=== PATIENT | female | born 1970 | race Caucasian/White ===

== ENCOUNTER 2018-02-11 14:38 | Emergency (ER) | payer BC ==
[2018-02-11] MEDS ORDERED: DIPH,PERTUS(ACELL)TETVAC-LF 0.5 ML VIAL IM ONE (16:10)
[2018-02-11] MEDS ORDERED: AMPICILLIN-SULBACTAM 3 GM in SODIUM CHLORIDE 0.9% 100 ML IVPB STA (16:12)
--- NOTE | 2018-02-11 16:13 | ED ---
Skin/Abscess/FB HPI - General Chief complaint: Skin/Abscess/Foreign Body Stated complaint: Fever Time Seen by Provider: 02/11/18 15:59 Source: patient Mode of arrival: ambulatory Limitations: no limitations - History of Present Illness Initial comments: 47 years old female presents with the fever chills and has a lump in the right inner thigh, she noticed this lump 3-4 days ago, he noticed she noticed that it is lump opened up today him a she noticed some discharge from there. She denies any headaches no neck stiffness or chest pain or shortness of breath or abdominal pain no frequency urgency dysuria this lump is painful, devious system is unremarkable - Related Data Home Medications Medication Instructions Recorded Confirmed Levothyroxine Sodium [Synthroid] 25 mcg PO QAM 01/31/15 02/11/18 Ibuprofen [Motrin] 800 mg PO Q6HR PRN 01/15/16 02/11/18 Previous Rx's Medication Instructions Recorded Amoxic-Pot Clav 875-125Mg 1 tab PO Q12HR #20 tablet 02/11/18 [Augmentin 875-125] oxyCODONE HCL/ACETAMINOPHEN 1 tab PO Q8HR PRN #12 tab 02/11/18 [Percocet 5-325 mg] Allergies Allergy/AdvReac Type Severity Reaction Status Date / Time codeine AdvReac NIGHTMARES Verified 02/11/18 16:14 [From Tylenol-Codeine #3] Review of Systems ROS Statement: Those systems with pertinent positive or pertinent negative responses have been documented in the HPI. ROS Other: All systems not noted in ROS Statement are negative. Past Medical History Past Medical History: Thyroid Disorder History of Any Multi-Drug Resistant Organisms: None Reported Past Surgical History: Section, Tubal Ligation Additional Past Surgical History / Comment(s): BILATERAL BREAST REDUCTION,D&C , uterine ablation Past Anesthesia/Blood Transfusion Reactions: No Reported Reaction Past Psychological History: Anxiety Smoking Status: Current every day smoker Past Alcohol Use History: Occasional Past Drug Use History: Marijuana - Past Family History Mother Family Medical History: Cancer General Exam - General Exam Comments Initial Comments: General: The patient is awake and alert, in mod distress, and does not appear acutely ill. Skin: Skin is warm , erythematous, tender is located in the right medial thigh is about size 10x10 cm is quite indurated noticed very small amount of polyps from the opening.. Eye: Pupils are equal, round and reactive to light, extra-ocular movements are intact; there is normal conjunctiva bilaterally. Ears, nose, mouth and throat: There are moist mucous membranes and no oral lesions. Neck: The neck is supple, there is no tenderness or JVD. Cardiovascular: There is a regular rate and rhythm. No murmur, rub or gallop is appreciated. Respiratory: To auscultation bilateral, no wheezing no rhonchi no distress respiratory tsai noticed Gastrointestinal: Soft, non-distended, non-tender abdomen without masses or organomegaly noted. There is no rebound or guarding present. Bowel sounds are unremarkable. Back: There is no tenderness to palpation in the midline. There is no obvious deformity. Musculoskeletal: Normal ROM, no tenderness, There is no pedal edema. There is no calf tenderness or swelling. No cords were appreciated. Neurological: CN II-XII intact, Cranial nerves III through XII are intact. There are no obvious motor or sensory deficits. Coordination appears grossly intact. Speech is normal. Psychiatric: Cooperative, appropriate mood & affect, normal judgment. Limitations: no limitations Course Vital Signs 02/11/18 02/11/18 15:27 17:36 Temperature 100.2 F H 97.9 F Pulse Rate 86 70 Respiratory 20 18 Rate Blood Pressure 157/82 170/89 O2 Sat by Pulse 100 99 Oximetry White count is normal small discharge noticed that the opening was cultured to evaluate the patient for possible MRSA she was given broad-spectrum antibiotic IV and she be gone home on now Augmentin 1 g by mouth twice a day for next 10 days. His cellulitis in the area so intubated not ready for any I and D Medical Decision Making - Lab Data Result diagrams: 02/11/18 16:20 Lab Results 02/11/18 Range/Units 16:20 WBC 11.3 H (3.8-10.6) k/uL RBC 4.70 (3.80-5.40) m/uL Hgb 13.8 (11.4-16.0) gm/dL Hct 42.5 (34.0-46.0) % MCV 90.4 (80.0-100.0) fL MCH 29.4 (25.0-35.0) pg MCHC 32.5 (31.0-37.0) g/dL RDW 12.7 (11.5-15.5) % Plt Count 407 (150-450) k/uL Neutrophils % 64 % Lymphocytes % 25 % Monocytes % 5 % Eosinophils % 4 % Basophils % 1 % Neutrophils # 7.3 (1.3-7.7) k/uL Lymphocytes # 2.9 (1.0-4.8) k/uL Monocytes # 0.6 (0-1.0) k/uL Eosinophils # 0.4 (0-0.7) k/uL Basophils # 0.1 (0-0.2) k/uL Disposition Clinical Impression: Cellulitis Disposition: HOME SELF-CARE Condition: Good Instructions: Cellulitis (ED) Prescriptions: Amoxic-Pot Clav 875-125Mg [Augmentin 875-125] 1 tab PO Q12HR #20 tablet oxyCODONE HCL/ACETAMINOPHEN [Percocet 5-325 mg] 1 tab PO Q8HR PRN #12 tab PRN Reason: Pain Referrals: Rachel Ryan MD [Primary Care Provider] - 1-2 days
[2018-02-11] MEDS ORDERED: SODIUM CHLORIDE 0.9% 1,000 ML IV ONE (16:14)
[2018-02-11 16:33] LABS: Basophils # (A) 0.1 k/uL (0-0.2); Basophils % (A) 1 %; Eosinophils # (A) 0.4 k/uL (0-0.7); Eosinophils % (A) 4 %; HCT 42.5 % (34.0-46.0); HGB 13.8 gm/dL (11.4-16.0); Lymphocytes # (A) 2.9 k/uL (1.0-4.8); Lymphocytes % (A) 25 %; MCH 29.4 pg (25.0-35.0); MCHC 32.5 g/dL (31.0-37.0); MCV 90.4 fL (80.0-100.0); Monocytes # (A) 0.6 k/uL (0-1.0); Monocytes % (A) 5 %; Neutrophils # (A) 7.3 k/uL (1.3-7.7); Neutrophils % (A) 64 %; Platelet Count 407 k/uL (150-450); RDW 12.7 % (11.5-15.5); WBC 11.3 k/uL (3.8-10.6)
[2018-02-11] MEDS ORDERED: oxyCODONE-APAP 7.5-325MG 1 EACH TAB PO STA (16:51)
[2018-02-11 17:38] VITALS: RESP 18
[2018-02-11 18:42] VITALS: BP 132/60; PULSE 77; TEMP 98.3
== END 2018-02-11 18:42 | disposition home or self-care (01) ==
LOC: EC 14:38
DX: L03.115 Cellulitis of right lower limb (principal); E07.9 Disorder of thyroid, unspecified; F17.200 Nicotine dependence, unspecified, uncomplicated; Z23 Encounter for immunization; Z79.899 Other long term (current) drug therapy; Z88.5 Allergy status to narcotic agent
CPT/HCPCS: 99283; 96365; 90471; 36415; 85025; 87040; 87070; 87205; 90715; J0295

== ENCOUNTER → 2019-01-24 | Outpatient (CLI) | payer BC ==
--- NOTE | 2019-01-24 15:59 | MR ---
EXAMINATION TYPE: MR brain wo/w con DATE OF EXAM: 01/24/2019 COMPARISON: None HISTORY: Left side face numbness CONTRAST: Performed utilizing 7.5 mL intravenous Gadavist gadolinium contrast. TECHNIQUE: Multiplanar, multiecho imaging on a 3.0 Mariam magnet is performed through the brain. Stud y is performed within 24 hours of arrival to the hospital. The craniovertebral junction is normal. The pituitary is normal. Diffusion-weighted imaging is performed. No abnormal hyperintensity is present to suggest an acute i ntracranial infarct or acute ischemic change. There are couple of subcortical white matter changes within the right parietal lobe and in the left p eriventricular white matter. This is not out of proportion to the patient age. Ventricles and sulci are appropriate for the patient age. No abnormal enhancement is evident. There is a retention cyst within the inferior right maxillary sinus. Paranasal sinuses and mastoid ai r cells are otherwise clear. IMPRESSIONS: 1. Three nonspecific white matter changes. Microvascular ischemic change or migraine headaches could be considered.
--- NOTE | 2019-01-24 16:19 | XR ---
Cervical spine HISTORY: Cervical radiculopathy 5 views of the cervical spine There is multilevel facet arthropathy present. At C6-7 there is foraminal encroachment greater on the left and at C4-5 on the right. Minimal anterolisthesis grade 1 C3-4, C4-5. There is loss of disc hei ght at C6-7 with associated spondylosis. C7-T1 is not well seen. There is loss of normal cervical samina dosis. IMPRESSION: Degenerative disc disease and facet arthropathy. Limitations as described. Cervical MRI m ay be of benefit.
== END | disposition home or self-care (01) ==
LOC: RADMRIMAIN 14:45
PROVIDERS: ATTEND Family Medicine
DX: M50.10 Cervical disc disorder with radiculopathy, unspecified cervical region (principal); M46.92 Unspecified inflammatory spondylopathy, cervical region; R90.89 Other abnormal findings on diagnostic imaging of central nervous system; F44.6 Conversion disorder with sensory symptom or deficit
CPT/HCPCS: 72050; 70553; A9585

== ENCOUNTER 2019-04-12 07:16 | Emergency (ER) | payer BC ==
[2019-04-12 07:24] VITALS: RESP 16
[2019-04-12] MEDS ORDERED: SODIUM CHLORIDE 0.9% 1,000 ML IV STA ×2 (07:38)
[2019-04-12] MEDS ORDERED: KETOROLAC 30 MG/ML 1 ML VIAL IVP STA (07:38)
--- NOTE | 2019-04-12 07:43 | ED ---
Abdominal Pain HPI - General Chief Complaint: Abdominal Pain Stated Complaint: rt flank/abd pain Time Seen by Provider: 04/12/19 07:27 Source: patient, RN notes reviewed Mode of arrival: ambulatory Limitations: no limitations - History of Present Illness Initial Comments: This is a 49-year-old female with history of ovarian cyst in the past who states she had the onset about 3 days ago of right-sided flank pain. Sharp in severity he progressively worse now radiates toward the right lower quadrant middle of the lower abdomen suprapubic region. No overt nausea vomiting diarrhea no dysuria hematuria she states the pain just is unrelenting no positional change improves it. She has no prior history kidney stones. No other modifying factors at this time no trauma. MD Complaint: flank pain - Related Data Home Medications Medication Instructions Recorded Confirmed Levothyroxine Sodium [Synthroid] 25 mcg PO QAM 01/31/15 04/12/19 Ibuprofen [Motrin] 800 mg PO Q6HR PRN 01/15/16 04/12/19 ALPRAZolam [Xanax] 0.25 mg PO DAILY PRN 04/12/19 04/12/19 Previous Rx's Medication Instructions Recorded Cyclobenzaprine [Flexeril] 10 mg PO TID #14 tab 04/12/19 Hydrocodone/Acetaminophen [[place] 1 each PO Q6HR PRN #12 tab 04/12/19 5-325] Ibuprofen 800 mg PO Q6HR PRN #20 tablet 04/12/19 predniSONE 20 mg PO BID #10 tab 04/12/19 Allergies Allergy/AdvReac Type Severity Reaction Status Date / Time codeine AdvReac NIGHTMARES Verified 04/12/19 08:17 [From Tylenol-Codeine #3] Review of Systems ROS Statement: Those systems with pertinent positive or pertinent negative responses have been documented in the HPI. ROS Other: All systems not noted in ROS Statement are negative. Past Medical History Past Medical History: Osteoarthritis (OA), Thyroid Disorder History of Any Multi-Drug Resistant Organisms: None Reported Past Surgical History: Section, Tubal Ligation Additional Past Surgical History / Comment(s): BILATERAL BREAST REDUCTION,D&C , uterine ablation Past Anesthesia/Blood Transfusion Reactions: No Reported Reaction Past Psychological History: Anxiety Smoking Status: Current every day smoker Past Alcohol Use History: Occasional Past Drug Use History: Marijuana - Past Family History Mother Family Medical History: Cancer General Exam - General Exam Comments Initial Comments: This is a well-developed well-nourished awake alert oriented 3 female Limitations: no limitations General appearance: alert, anxious, in distress Head exam: Present: atraumatic, normocephalic, normal inspection Eye exam: Present: normal appearance, PERRL, EOMI. Absent: scleral icterus, conjunctival injection, periorbital swelling ENT exam: Present: normal exam, mucous membranes moist Neck exam: Present: normal inspection. Absent: tenderness, meningismus, lymphadenopathy Respiratory exam: Present: normal lung sounds bilaterally. Absent: respiratory distress, wheezes, rales, rhonchi, stridor Cardiovascular Exam: Present: regular rate, normal rhythm, normal heart sounds. Absent: systolic murmur, diastolic murmur, rubs, gallop, clicks GI/Abdominal exam: Present: soft, tenderness (Mild right flank tenderness no guarding rebound masses or bruits), normal bowel sounds. Absent: distended, guarding, rebound, rigid Extremities exam: Present: normal inspection, full ROM, normal capillary refill. Absent: tenderness, pedal edema, joint swelling, calf tenderness Back exam: Present: normal inspection, other (I'll tenderness over the right paraspinous muscles in the side joint area). Absent: CVA tenderness (R) Neurological exam: Present: alert, oriented X3, CN II-XII intact Psychiatric exam: Present: normal affect, normal mood Skin exam: Present: warm, dry, intact, normal color. Absent: rash Course Vital Signs 04/12/19 07:22 Temperature 97.5 F L Pulse Rate 65 Respiratory 16 Rate Blood Pressure 151/96 O2 Sat by Pulse 100 Oximetry Medical Decision Making - Medical Decision Making Evaluation patient reveals some improvement in her pain the reexamination reveals tenderness over the right gluteus muscle as well as a right SI joint [address] the presentation is more consistent with sciatica. Patient be treated appropriately she is a follow-up with her doctor MRI is suggested. - Lab Data Result diagrams: 04/12/19 07:55 04/12/19 07:55 Lab Results 04/12/19 04/12/19 04/12/19 Range/Units 07:55 07:55 10:00 WBC 7.2 (3.8-10.6) k/uL RBC 4.69 (3.80-5.40) m/uL Hgb 13.9 (11.4-16.0) gm/dL Hct 43.5 (34.0-46.0) % MCV 92.8 (80.0-100.0) fL MCH 29.6 (25.0-35.0) pg MCHC 31.9 (31.0-37.0) g/dL RDW 12.7 (11.5-15.5) % Plt Count 420 (150-450) k/uL Neutrophils % 58 % Lymphocytes % 30 % Monocytes % 6 % Eosinophils % 5 % Basophils % 1 % Neutrophils # 4.2 (1.3-7.7) k/uL Lymphocytes # 2.2 (1.0-4.8) k/uL Monocytes # 0.4 (0-1.0) k/uL Eosinophils # 0.3 (0-0.7) k/uL Basophils # 0.1 (0-0.2) k/uL Sodium 139 (137-145) mmol/L Potassium 5.1 (3.5-5.1) mmol/L Chloride 109 H (98-107) mmol/L Carbon Dioxide 24 (22-30) mmol/L Anion Gap 6 mmol/L BUN 18 H (7-17) mg/dL Creatinine 0.74 (0.52-1.04) mg/dL Est GFR (CKD-EPI)AfAm >90 (>60 ml/min/1.73 sqM) Est GFR (CKD-EPI)NonAf >90 (>60 ml/min/1.73 sqM) Glucose 87 (74-99) mg/dL Calcium 10.0 (8.4-10.2) mg/dL Total Bilirubin 0.5 (0.2-1.3) mg/dL AST 24 (14-36) U/L ALT 40 (9-52) U/L Alkaline Phosphatase 76 (38-126) U/L Creatine Kinase 58 (30-135) U/L Total Protein 6.9 (6.3-8.2) g/dL Albumin 4.1 (3.5-5.0) g/dL Amylase 87 (30-110) U/L Lipase 111 (23-300) U/L Urine Color Light Yellow Urine Appearance Cloudy H (Clear) Urine pH 5.0 (5.0-8.0) Ur Specific [place] 1.033 (1.001-1.035) Urine Protein Negative (Negative) Urine Glucose (UA) Negative (Negative) Urine Ketones Negative (Negative) Urine Blood Negative (Negative) Urine Nitrite Negative (Negative) Urine Bilirubin Negative (Negative) Urine Urobilinogen <2.0 (<2.0) mg/dL Ur Leukocyte Esterase Small H (Negative) Urine RBC 1 (0-5) /hpf Urine WBC 3 (0-5) /hpf Ur Squamous Epith Cells 17 H (0-4) /hpf Urine Mucus Rare H (None) /hpf - Radiology Data Radiology results: report reviewed (Imaging study shows no evidence of acute findings.), image reviewed Disposition Clinical Impression: Sciatica Disposition: HOME SELF-CARE Condition: Good Instructions (If sedation given, give patient instructions): Sciatica (ED), Lower Back Exercises (ED) Prescriptions: Cyclobenzaprine [Flexeril] 10 mg PO TID #14 tab Ibuprofen 800 mg PO Q6HR PRN #20 tablet PRN Reason: Pain Hydrocodone/Acetaminophen [[place] 5-325] 1 each PO Q6HR PRN #12 tab PRN Reason: Pain predniSONE 20 mg PO BID #10 tab Is patient prescribed a controlled substance at d/c from ED?: No When asked, does pt state using other controlled substances?: No If prescribed controlled substance>3 days was MAPS reviewed?: Prescribed <3 Days If opioid is for acute pain is fill amount 7 days or less?: Yes If Rx opioid, was Start Talking consent form obtained?: Yes Referrals: Rachel Ryan MD [Primary Care Provider] - 1-2 days
[2019-04-12 08:18] LABS: Basophils # (A) 0.1 k/uL (0-0.2); Basophils % (A) 1 %; Eosinophils # (A) 0.3 k/uL (0-0.7); Eosinophils % (A) 5 %; HCT 43.5 % (34.0-46.0); HGB 13.9 gm/dL (11.4-16.0); Lymphocytes # (A) 2.2 k/uL (1.0-4.8); Lymphocytes % (A) 30 %; MCH 29.6 pg (25.0-35.0); MCHC 31.9 g/dL (31.0-37.0); MCV 92.8 fL (80.0-100.0); Mean Platelet Volume 6.8; Monocytes # (A) 0.4 k/uL (0-1.0); Monocytes % (A) 6 %; Neutrophils # (A) 4.2 k/uL (1.3-7.7); Neutrophils % (A) 58 %; Platelet Count 420 k/uL (150-450); RBC 4.69 m/uL (3.80-5.40); RDW 12.7 % (11.5-15.5); WBC 7.2 k/uL (3.8-10.6)
--- NOTE | 2019-04-12 08:21 | XR ---
KUB HISTORY: Right flank pain, abdominal pain KUB is submitted on 2 images and correlated to previous 02/25/2010 Lung bases are clear. There is no evident pneumoperitoneum or bowel obstruction. Mild spinal curvatur e is noted. Fallopian tubal ligation clips are present in the pelvis. There are scattered calcificati ons which are indeterminate. IMPRESSION: Indeterminate pelvic calcifications.
[2019-04-12 08:30] LABS: ALT 40 U/L (9-52); AST 24 U/L (14-36); Albumin 4.1 g/dL (3.5-5.0); Alkaline Phosphatase 76 U/L (38-126); Amylase 87 U/L (30-110); Anion Gap 6 mmol/L; Blood Urea Nitrogen 18 mg/dL (7-17); Carbon Dioxide 24 mmol/L (22-30); Chloride 109 mmol/L (98-107); Creatine Kinase 58 U/L (30-135); Glucose 87 mg/dL (74-99); Lipase 111 U/L (23-300); Potassium 5.1 mmol/L (3.5-5.1); Sodium 139 mmol/L (137-145); Total Bilirubin 0.5 mg/dL (0.2-1.3); Total Protein 6.9 g/dL (6.3-8.2)
[2019-04-12] MEDS ORDERED: fentaNYL (PF) 50 MCG/ML 2 ML AMP IV STA (09:06)
--- NOTE | 2019-04-12 10:10 | CT ---
EXAMINATION TYPE: CT abdomen pelvis w con DATE OF EXAM: 04/12/2019 HISTORY: Right flank pain with radiating pain into the groin CT DLP: 1172.6mGycm Automated Exposure Control for Dose Reduction was Utilized. CONTRAST: CT scan of the abdomen and pelvis is performed with IV Contrast, patient injected with 100 mL of Isov ue 300. COMPARISON: None. FINDINGS: LUNG BASES: Minimal subsegmental atelectasis. LIVER/GB: Hepatic parenchyma is diffusely hypoattenuated in comparison to that of the spleen, most co mmonly seen in hepatic steatosis. This finding limits evaluation for hepatic masses. Probable focal f atty sparing is seen in a typical location around the gallbladder fossa No gross evidence of hepatic mass is seen. No intrahepatic biliary ductal dilatation. No cholelithiasis. PANCREAS: No significant abnormality is seen. SPLEEN: No significant abnormality is seen. ADRENALS: No significant abnormality is seen. KIDNEYS: No significant abnormality is seen. BOWEL: Appendix is partially air-filled and within normal limits of size. UTERUS/ADNEXA: Tubal ligation clips are present. LYMPH NODES: No greater than 1cm abdominal or pelvic lymph nodes are appreciated. OSSEOUS STRUCTURES: No acute osseous abnormality. Mild degenerative changes of the spine. At least di sc bulges seen at L5-S1. Mild bilateral femoral acetabular arthropathy OTHER: Small periumbilical hernia is fat filled. Abdominal aorta is of normal course and caliber. IMPRESSION: 1. Mild to moderate degree hepatic steatosis. 2. No CT finding to correspond to the patient's right lower quadrant pain. No evidence of bowel obstr uction or acute appendicitis. No hydronephrosis.
[2019-04-12 10:16] LABS: Appearance,Urine Cloudy (Clear); Bilirubin,Urine Negative (Negative); Blood,Urine Negative (Negative); Color,Urine Light Yellow; Glucose,Urine (UA) Negative (Negative); Ketones,Urine Negative (Negative); Leukocyte Esterase,Urine Small (Negative); Mucus,Urine Rare /hpf; Nitrite,Urine Negative (Negative); Protein,Urine Negative (Negative); RBC,Urine 1 /hpf (0-5); Specific Gravity,Urine 1.033 (1.001-1.035); Squamous Epithelial Cell,Urine 17 /hpf (0-4); Urobilinogen,Urine <2.0 mg/dL (<2.0); WBC,Urine 3 /hpf (0-5)
[2019-04-12] MEDS ORDERED: methylPREDNISolone SOD SUCCI 125 MG/2 ML VIAL IV STA (11:04)
[2019-04-12 11:56] VITALS: BP 155/103; PULSE 52; TEMP 97.6
== END 2019-04-12 12:04 | disposition home or self-care (01) ==
LOC: EC 07:16
DX: M54.30 Sciatica, unspecified side (principal); E07.9 Disorder of thyroid, unspecified; F17.200 Nicotine dependence, unspecified, uncomplicated; Z79.890 Hormone replacement therapy; Z88.5 Allergy status to narcotic agent; Z88.6 Allergy status to analgesic agent
CPT/HCPCS: 36415; 80053; 82150; 82550; 83690; 85025; 81001; 74018; 74177; 99284; 96374; 96375 ×2; 96361 ×4; J2930; J3010; J1885; Q9967

== ENCOUNTER 2019-05-01 10:28 | Emergency (ER) | payer OTHER, BC ==
[2019-05-01 10:55] VITALS: BP 151/87; PULSE 87; RESP 18; TEMP 98.7
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
--- NOTE | 2019-05-01 12:56 | XR ---
EXAMINATION TYPE: XR chest 2V DATE OF EXAM: 05/01/2019 COMPARISON: NONE TECHNIQUE: PA and lateral views submitted. HISTORY: Left arm pain FINDINGS: The lungs are clear and there is no pneumothorax, pleural effusion, or focal pneumonia. Arthropathy of the AC joints IMPRESSION: 1. No acute process.
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
== END 2019-05-01 13:37 | disposition home or self-care (01) ==
LOC: EC 10:28
DX: M54.12 Radiculopathy, cervical region (principal); M54.9 Dorsalgia, unspecified; E07.9 Disorder of thyroid, unspecified; M48.02 Spinal stenosis, cervical region; F17.200 Nicotine dependence, unspecified, uncomplicated; Z79.890 Hormone replacement therapy; Z79.899 Other long term (current) drug therapy; Z88.5 Allergy status to narcotic agent; Z88.6 Allergy status to analgesic agent; V89.2XXA Person injured in unspecified motor-vehicle accident, traffic, initial encounter; W22.11XA Striking against or struck by driver side automobile airbag, initial encounter; Y92.410 Unspecified street and highway as the place of occurrence of the external cause
CPT/HCPCS: 70450; 71046; 72100; 72125; 99284

== ENCOUNTER → 2019-07-17 | Outpatient (CLI) | payer BC ==
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
== END | disposition home or self-care (01) ==
LOC: RADUSWWP 14:59
PROVIDERS: ATTEND Family Medicine
DX: R93.89 Abnormal findings on diagnostic imaging of other specified body structures (principal)
CPT/HCPCS: 76830

== ENCOUNTER → 2019-11-27 | Outpatient (CLI) | payer BC, OTHER ==
[2019-11-27 15:39] LABS: Basophils % (A) 1 %; Eosinophils # (A) 0.2 k/uL (0-0.7); Eosinophils % (A) 2 %; HCT 43.4 % (34.0-46.0); HGB 14.2 gm/dL (11.4-16.0); Lymphocytes # (A) 2.9 k/uL (1.0-4.8); Lymphocytes % (A) 31 %; MCH 30.6 pg (25.0-35.0); MCHC 32.8 g/dL (31.0-37.0); MCV 93.4 fL (80.0-100.0); Mean Platelet Volume 7.2; Monocytes # (A) 0.5 k/uL (0-1.0); Monocytes % (A) 5 %; Neutrophils # (A) 5.6 k/uL (1.3-7.7); Neutrophils % (A) 60 %; Platelet Count 442 k/uL (150-450); RBC 4.65 m/uL (3.80-5.40); RDW 12.7 % (11.5-15.5); WBC 9.3 k/uL (3.8-10.6)
[2019-11-27 15:45] LABS: Potassium 4.6 mmol/L (3.5-5.1)
== END | disposition home or self-care (01) ==
LOC: LABPAT 13:49
PROVIDERS: ATTEND Orthopaedic Surgery
DX: Z01.818 Encounter for other preprocedural examination (principal); Z01.812 Encounter for preprocedural laboratory examination; M75.42 Impingement syndrome of left shoulder
CPT/HCPCS: 36415; 80051; 85025; 93005

== ENCOUNTER 2019-11-29 05:50 | Day surgery (SDC) | payer BC, OTHER ==
--- NOTE | 2019-11-28 16:54 | HP ---
HISTORY AND PHYSICAL REASON FOR ADMISSION: Surgery is scheduled for 11/29/2019. HISTORY OF PRESENT ILLNESS: Demi Muñiz is a 49-year-old patient seen with progressive left shoulder pain. We discussed options for treatment. She elected to proceed with arthroscopy. Consent was obtained. PAST MEDICAL HISTORY: Her past medical history is hypothyroidism. PAST SURGICAL HISTORY: Past surgical history is noncontributory. DAILY MEDICATIONS: Ibuprofen, Synthroid, tramadol. ALLERGIES: TYLENOL #3. SOCIAL HISTORY: She smokes 1/4-pack of cigarettes daily. PHYSICAL EXAMINATION: Physical evaluation of the left shoulder: Flexion 90 degrees, abduction 60 degrees, external rotation is 40 degrees. Tenderness along the anterolateral acromion and rotator cuff insertion site. Impingement is positive at 90. Drop arm sign positive. Distal neurovascular examination is intact. RADIOGRAPHS: Radiographs of the left shoulder revealed a type 2 acromion, acromioclavicular joint osteoarthritis, and cystic changes of the greater tuberosity. A left shoulder MRI scan revealed rotator cuff tendon tear. IMPRESSION: 1. Left shoulder impingement with rotator cuff tear. 2. Left shoulder acromioclavicular joint osteoarthritis. 3. Hypothyroidism. 4. Tobacco use. PLAN: Left shoulder arthroscopy with subacromial decompression, probable arthroscopy rotator cuff repair, possible Alfonso procedure and debridement. MMODL / IJN: [id number] /
[~2019-11-29 05:50] MED LIST: DEXAMETHASONE SOD PHOSPHATE 10 MG/ML 1 ML VIAL IV ONE; HYDROmorphone 0.5 MG/0.5 ML SYRINGE IVP PRN; LACTATED RINGERS 1,000 ML IV SCH; LIDOCAINE 1% 20 ML VIAL (10MG/ML) FOR IV START INTRADERMA PRN; MIDAZOLAM 2 MG/2 ML VIAL IV PRN; ONDANSETRON 4 MG/2 ML VIAL IVP ONE; fentaNYL (PF) 50 MCG/ML 2 ML AMP IVP PRN
[2019-11-29] MEDS ORDERED: PROPOFOL 10 MG/ML 20 ML VIAL IV ONE (07:22)
[2019-11-29] MEDS ORDERED: LIDOCAINE 1% INJ 10MG/ML (20 ML MDV) ONE (07:22)
[2019-11-29] MEDS ORDERED: DEXAMETHASONE SOD PHOSPHATE 4 MG/ML 1 ML VIAL ONE (07:22)
[2019-11-29] MEDS ORDERED: ROPIVACAINE 5 MG/ML 30 ML VIAL ONE (07:22)
[2019-11-29] MEDS ORDERED: fentaNYL (PF) 50 MCG/ML 2 ML AMP ONE (07:22)
[2019-11-29] MEDS ORDERED: SUCCINYLCHOLINE CHLORIDE 100 MG/5 ML SYR IV ONE (07:22)
[2019-11-29] MEDS ORDERED: MIDAZOLAM 2 MG/2 ML VIAL ONE (07:22)
--- NOTE | 2019-11-29 08:40 | P.ANPRN ---
Procedure Note - Anesthesia - Nerve Block Performed Left Interscalene Single Time Out Performed: Yes Date of Procedure: 11/29/19 Procedure Start Time: 07:05 Procedure Stop Time: 07:11 Location of Patient: PreOp Indication: Acute Post-Operative Pain, Requested by Surgeon Sedation Type: Sedate with meaningful contact maintained Preparation: Sterile Prep Position: Supine Needle Types: Pajunk Needle Gauge: 21 Ultrasound used to visualize needle placement: Yes Ultrasound used to observe medication spread: Yes Blood Aspirated: No Pain Paresthesia on Injection Noted: No Resistance on Injection: Normal Image Stored and Saved: Yes Events: Uneventful and Well Tolerated (ropi .5% 30cc plus dexamethasone 4mg)
[2019-11-29 09:12] VITALS: TEMP 97.3
[2019-11-29] MEDS ORDERED: diphenhydrAMINE 50 MG/ML 1 ML VIAL IVP ONE (09:12)
--- NOTE | 2019-11-29 09:13 | P.OP ---
Date of Procedure: 11/29/19 Preoperative Diagnosis: Left shoulder impingement Postoperative Diagnosis: 1. Left shoulder rotator cuff tear 2. Left shoulder impingement 3. Left shoulder acromioclavicular joint osteoarthritis 4. Left shoulder partial long head biceps tendon tear Procedure(s) Performed: 1. Left shoulder arthroscopic rotator cuff repair 2. Left shoulder arthroscopic subacromial decompression 3. Left shoulder arthroscopic Alfonso procedure 4. Left shoulder arthroscopic biceps tenotomy Implants: 1Arthrex 4.75 swivel lock anchor Anesthesia: GETA, regional (Interscalene block) Surgeon: Miguelito Chen Nonprofit Director #1: Henrique Kapoor Estimated Blood Loss (ml): 10 Pathology: none sent Condition: stable Disposition: PACU Indications for Procedure: 49-year-old patient seen with progressive left shoulder pain. After treatment options were discussed, she elected to proceed with arthroscopy. Operative Findings: See description of procedure Description of Procedure: Patient underwent an interscalene block by department of anesthesia for postoperative pain management. The patient was then taken to the operative suite. The patient underwent a general anesthetic by the department of anesthesia. The patient was placed into a lateral position and secured. There was appropriate padding of the bony prominence. Left shoulder was then prepped and draped in normal sterile orthopedic fashion. We placed the extremity in 10 pounds of longitudinal traction. A posterior incision was now made for a posterior working portal site. The trocar and cannula were inserted into the glenohumeral joint. Arthroscopy was initiated. Spinal needle was now inserted anteriorly, to ascertain the anterior working portal site. An incision was now made in that area, a trocar was inserted followed by a probe. There was partial tearing of the long head biceps tendon tear and there were grade 1 chondromalacia changes of the glenoid fossa. The labrum was probed and found to be stable. I performed an arthroscopic biceps tenotomy. I again probed the labrum and it was stable. Instruments were now removed from the glenohumeral joint. Utilizing the posterior working portal site, the trocar and cannula were inserted into the subacromial space. Arthroscopy initiated. I made an incision 2 fingerbreadths lateral to the acromion. I introduced my trocar followed by my ArthroCare ablator. I now began ablating thick subacromial bursal tissue, which exposed the undersurface of the anterior acromion. There was diminished subacromial space. There was a very prominent anterior acromion. A motorized bur was introduced and a subacromial decompression was performed. I also excised some osteophytes off the inferior aspect of the distal clavicle. The AC joint was visualized and noted to be fairly arthritic. The motorized bur was introduced in the anterior portal site and a Alfonso procedure was performed without difficulty, decompressing the AC joint nicely. I turned my attention to the rotator cuff. There was a 1.5 cm rotator cuff tear. I debrided the margins getting down to stable tendon tissue. I abraded the footprint with a motorized bur. I passed 3 everted mattress sutures through good bites of rotator cuff tendon. I punched a hole in the footprint for insertion of an anchor. I passed all 6 limbs through the eyelet of a 4.75 Arthrex swivel lock anchor. I now introduced the eyelet into the pre-punch hole. Gerald GOLDEN tensioned all the sutures and deployed the anchor with good fixation noted. All residual suture limbs were now clipped. We had good compression of the tendon along the entire footprint. I injected 1 mL Renyte intra-articular. Instruments now removed from the portal sites. All portal sites were approximated with nylon suture. Sterile dressings were applied followed by a shoulder sling. Henrique GOLDEN assisted in this complex case. The patient was awakened, transferred to a bed, and taken to recovery in stable condition.
[2019-11-29 10:32] VITALS: RESP 18
[2019-11-29 10:49] VITALS: BP 144/78; PULSE 78
== END 2019-11-29 11:20 | disposition home or self-care (01) ==
LOC: OR 05:50
PROVIDERS: ATTEND Orthopaedic Surgery
DX: M75.42 Impingement syndrome of left shoulder (principal); M19.012 Primary osteoarthritis, left shoulder; M75.102 Unspecified rotator cuff tear or rupture of left shoulder, not specified as traumatic; S46.112A Strain of muscle, fascia and tendon of long head of biceps, left arm, initial encounter; M94.212 Chondromalacia, left shoulder; I10 Essential (primary) hypertension; F41.9 Anxiety disorder, unspecified; E03.9 Hypothyroidism, unspecified; F17.210 Nicotine dependence, cigarettes, uncomplicated; Z79.1 Long term (current) use of non-steroidal anti-inflammatories (NSAID); Z79.890 Hormone replacement therapy; Z79.891 Long term (current) use of opiate analgesic; Z88.5 Allergy status to narcotic agent; X58.XXXA Exposure to other specified factors, initial encounter
CPT/HCPCS: 64415; 76942; 29827; 29826; 29824; 29828; C1713; Q4212; J2250; J1200; J1100 ×2; J0690; J2405; J2001; J3010; J2795; J0330; J2704

== ENCOUNTER 2020-06-03 08:17 | Day surgery (SDC) | payer BC, OTHER ==
[2020-05-31 13:05] VITALS: BMI 34.2
--- NOTE | 2020-06-02 11:12 | HP ---
HISTORY AND PHYSICAL Surgery 06/03/2020 Demi Muñiz is a 50-year-old patient seen with left shoulder adhesive capsulitis with history of previous arthroscopy and rotator cuff repair. We discussed options. She elected to proceed with manipulation under anesthesia, left shoulder with steroid injection. Consent regarding the procedure was obtained. PAST MEDICAL HISTORY: Hypothyroidism. PAST SURGICAL HISTORY: Left shoulder arthroscopy, tonsillectomy, section, breast reduction. MEDICATIONS: Gabapentin, Synthroid, tramadol, Xanax. ALLERGIES: TYLENOL WITH CODEINE. SOCIAL HISTORY: Smokes cigarettes. PHYSICAL EXAMINATION: Evaluation of her left shoulder, her previous arthroscopic portal sites are well healed. Flexion is 110 degrees, abduction is 80 degrees, external rotation is 30 degrees with reasonable strength. Her distal neurovascular exam is intact. Radiographs of the left shoulder revealed a conversion to a flat anterior acromion. IMPRESSION: 1. Left shoulder adhesive capsulitis. 2. History of left shoulder arthroscopic rotator cuff repair. 3. Hypothyroidism. 4. Tobacco use. PLAN: Manipulation under anesthesia, left shoulder steroid injection. MMODL / IJN: [id number] /
[~2020-06-03 08:17] MED LIST changes: -DEXAMETHASONE SOD PHOSPHATE 10 MG/ML 1 ML VIAL IV ONE; -HYDROmorphone 0.5 MG/0.5 ML SYRINGE IVP PRN; +LIDOCAINE 1% (10MG/ML) FOR IV START INTRADERMA PRN; -LIDOCAINE 1% 20 ML VIAL (10MG/ML) FOR IV START INTRADERMA PRN; -MIDAZOLAM 2 MG/2 ML VIAL IV PRN; -ONDANSETRON 4 MG/2 ML VIAL IVP ONE; -fentaNYL (PF) 50 MCG/ML 2 ML AMP IVP PRN
[2020-06-03 08:47] VITALS: TEMP 97
[2020-06-03] MEDS ORDERED: KETOROLAC 30 MG/ML 1 ML VIAL IVP ONE (09:28)
[2020-06-03] MEDS ORDERED: PROPOFOL 10 MG/ML 20 ML VIAL IV ONE (09:47)
[2020-06-03] MEDS ORDERED: fentaNYL (PF) 50 MCG/ML 2 ML AMP ONE (09:47)
[2020-06-03] MEDS ORDERED: LIDOCAINE 1% INJ 10MG/ML (20 ML MDV) ONE (09:47)
[2020-06-03] MEDS ORDERED: MIDAZOLAM 2 MG/2 ML VIAL ONE (09:47)
[2020-06-03] MEDS ORDERED: methylPREDNISolone ACETATE 80 MG/ML 1 ML VIAL MISCELLANE ONE (09:54)
[2020-06-03] MEDS ORDERED: BUPIVACAINE (PF) 0.25% 30 ML VIAL MISCELLANE ONE (09:54)
--- NOTE | 2020-06-03 09:57 | P.OP ---
Date of Procedure: 06/03/20 Preoperative Diagnosis: Left shoulder adhesive capsulitis Postoperative Diagnosis: Left shoulder adhesive capsulitis Procedure(s) Performed: Manipulation under anesthesia left shoulder with steroid injection Anesthesia: MAC Surgeon: Miguelito Chen Estimated Blood Loss (ml): 0 Pathology: none sent Condition: stable Disposition: PACU Indications for Procedure: 50-year-old patient seen with persistent left shoulder stiffness/adhesive capsulitis. We discussed manipulation under anesthesia with steroid injection. Patient was agreeable and consent was obtained. Operative Findings: See description of procedure Description of Procedure: The patient was taken to monitored anesthesia care. The patient underwent IV sedation by the department of anesthesia. Once sufficient anesthesia was noted a manipulation was performed achieving near full range of motion with audible tearing of the adhesions. The anterior aspect the shoulder was prepped and draped in the normal sterile orthopedic fashion. I now injected solution of 1 mL Depo-Medrol and 3 mL percent plain Marcaine into the glenohumeral joint under sterile technique. A sterile Band-Aid was applied. The patient was awakened having tolerated procedure well.
[2020-06-03 10:58] VITALS: RESP 18
[2020-06-03 11:25] VITALS: BP 112/67; PULSE 57
== END 2020-06-03 11:40 | disposition home or self-care (01) ==
LOC: OR 08:17
PROVIDERS: ATTEND Orthopaedic Surgery
DX: M75.02 Adhesive capsulitis of left shoulder (principal); E03.9 Hypothyroidism, unspecified; F41.9 Anxiety disorder, unspecified; F32.9 Major depressive disorder, single episode, unspecified; F17.210 Nicotine dependence, cigarettes, uncomplicated; Z88.5 Allergy status to narcotic agent; Z98.890 Other specified postprocedural states; Z87.39 Personal history of other diseases of the musculoskeletal system and connective tissue; Z90.89 Acquired absence of other organs; Z79.899 Other long term (current) drug therapy; Z79.890 Hormone replacement therapy; Z79.891 Long term (current) use of opiate analgesic; Z79.1 Long term (current) use of non-steroidal anti-inflammatories (NSAID); Z97.2 Presence of dental prosthetic device (complete) (partial)
CPT/HCPCS: 23700; 20610; J2250; J1040; J2001; J3010; J1885; J2704

== ENCOUNTER → 2021-04-08 | Outpatient (CLI) | payer SELFPAY ==
[2021-04-08 11:47] LABS: Appearance,Urine Clear (Clear); Bilirubin,Urine Negative (Negative); Blood,Urine Negative (Negative); Color,Urine Light Yellow; Glucose,Urine (UA) Negative (Negative); Ketones,Urine Negative (Negative); Leukocyte Esterase,Urine Negative (Negative); Nitrite,Urine Negative (Negative); PH, Urine 5.5 (5.0-8.0); Protein,Urine Negative (Negative); Specific Gravity,Urine 1.006 (1.001-1.035); Urobilinogen,Urine <2.0 mg/dL (<2.0)
[2021-04-08 11:54] LABS: INR 0.9 (<1.2); Partial Thromboplastin Time 22.7 sec (22.0-30.0); Prothrombin Time 9.5 sec (9.0-12.0)
--- NOTE | 2021-04-08 15:24 | XR ---
EXAMINATION TYPE: XR chest 2V DATE OF EXAM: 04/08/2021 COMPARISON: Chest x-ray 05/01/2019 HISTORY: Presurgical TECHNIQUE: Frontal and lateral views of the chest are obtained. FINDINGS: There is no focal air space opacity, pleural effusion, or pneumothorax seen. The cardiac silhouette size is within normal limits. The osseous structures are intact. IMPRESSION: No acute cardiopulmonary process.
[2021-04-08 19:07] LABS: HCT 44.8 % (37.2-46.3); HGB 14.8 g/dL (12.0-15.0); MCH 30.6 pg (27.0-32.0); MCV 92.8 fL (80.0-97.0); Platelet Count 420 X 10*3/uL (140-440); RBC 4.83 X 10*6/uL (4.10-5.20); WBC 10.71 X 10*3/uL (4.50-10.00)
[2021-04-08 21:01] LABS: African American GFR (CKD) 85.2 (60.0-200.0); Albumin 4.6 g/dL (3.80-4.90); BUN/Creat Ratio 16.67 Ratio (12.00-20.00); Globulin 2.3 g/dL (1.6-3.3); Non-African American GFR(CKD) 73.5 (60.0-200.0); Potassium 4.7 mmol/L (3.5-5.5); Total Bilirubin 0.4 mg/dL (0.3-1.2); Total Protein 6.9 g/dL (6.2-8.2)
== END | disposition home or self-care (01) ==
LOC: LABWHC1 11:20
PROVIDERS: ATTEND Neurological Surgery
DX: Z01.818 Encounter for other preprocedural examination (principal); F34.1 Dysthymic disorder; R30.0 Dysuria; R79.9 Abnormal finding of blood chemistry, unspecified
CPT/HCPCS: 36415; 71046; 80053; 81003; 85027; 85610; 85730

== ENCOUNTER → 2021-07-21 | Outpatient (CLI) | payer OTHER ==
--- NOTE | 2021-07-21 12:59 | XR ---
Cervical spine Limited HISTORY: Cervical fusion Patient shows postop change along the C4-5, C5-6 and C6-7 levels, anterolisthesis grade 1 C3-4, C4-5 and C6-7, intervertebral spacing blocks are present, anterior cervical interbody implants are present . Cervical vertebral bodies show preserved height. Bone mineralization is maintained. Improvement dis c space narrowing is present at C6-7. There is multilevel facet arthropathy. IMPRESSION: Postop changes as described.
== END | disposition home or self-care (01) ==
LOC: RADXRMAIN 10:52
PROVIDERS: ATTEND Neurological Surgery
DX: M43.12 Spondylolisthesis, cervical region (principal); Z98.1 Arthrodesis status
CPT/HCPCS: 72040

== ENCOUNTER → 2024-01-13 | Outpatient (CLI) | payer OTHER ==
--- NOTE | 2024-01-14 12:57 | US ---
EXAMINATION TYPE: US transvaginal DATE OF EXAM: 01/13/2024 COMPARISON: NONE CLINICAL INDICATION: Female, 53 years old with history of R10.2 PELVIC PAIN; Right pelvic pain, ablat ion TECHNIQUE: Transvaginal (TV). Date of LMP: unknown EXAM MEASUREMENTS: Uterus: 6.7 x 3.4 x 4.5 cm Endometrial Stripe: Not well delineated, estimated at 0.4 cm Right Ovary: 1.9 x 1.9 x 1.2 cm Left Ovary: unable to visualize 1. Uterus: Anteverted. The myometrium is mildly heterogeneous 2. Endometrium: Tiny 4 mm fluid locule along the fundal endometrium. 3. Right Ovary: appears wnl 4. Left Ovary: Obscured by overlying bowel gas 5. Bilateral Adnexa: wnl 6. Posterior cul-de-sac: wnl IMPRESSION: 1. There is a reported history of previous ablation. This may account for the indistinctness of the e ndometrial stripe. 2. However, there is a tiny 4 mm fluid locule along the fundal endometrium. Consider a small focus of hematometra. 3. Unable to visualize the left ovary.
== END | disposition home or self-care (01) ==
LOC: RADUSWWP 16:16
PROVIDERS: ATTEND Family Medicine
DX: R93.89 Abnormal findings on diagnostic imaging of other specified body structures (principal); R10.2 Pelvic and perineal pain
CPT/HCPCS: 76830